=== PATIENT | male | born 1985 | race Hispanic/Latino ===

== ENCOUNTER → 2017-03-07 | Emergency (ER) | payer BC ==
[~2017-03-07] VITALS: Ht 165.1 cm; Wt 74.4 kg
[~2017-03-07] MED LIST: ADVIL LIQUI-GE200 MG PO
== END ==
LOC: ED 00:16
DX: R11.2 Nausea with vomiting, unspecified (principal); J02.9 Acute pharyngitis, unspecified; R50.9 Fever, unspecified
CPT/HCPCS: 71010; 80053; 81001; 83605; 85025; 87040; 87077; 87081; 87147; 87186; 87502; 87880; 96374; 99283; J2405